=== PATIENT | female | born 1975 | race African-American/Black ===

== ENCOUNTER 2025-04-16 20:50 | Emergency (ER) | payer OTHER ==
[2025-04-16 22:11] LABS: ALT (SGPT) 18 U/L (Less than 34); AST (SGOT) 21 U/L (11-34); Albumin 3.3 g/dL (3.1-4.5); Alkaline Phosphatase 115 U/L (40-110); Anion Gap 11 mmol/L (10-20); BUN (Urea Nitrogen) 9 mg/dL (9.8-20.1); Bilirubin, Total 0.3 mg/dL (0.3-1.2); Calc. Creatinine Clearance 0 mL/min (70-130); Calcium 8.5 mg/dL (7.8-10.44); Carbon Dioxide 23 mmol/L (22-29); Chloride 105 mmol/L (98-107); Globulin 3.5 g/dL (2.4-3.5); Potassium 4.1 mmol/L (3.5-5.1); Sodium 135 mmol/L (136-145)
[2025-04-16 22:12] LABS: Glucose 438 mg/dL (70-105)
[2025-04-16 22:23] LABS: #Basophils 0.03 10x3/uL (0.0-0.2); #Eosinophils 0.11 10x3/uL (0.0-0.5); #Monocytes 0.59 10x3/uL (0.0-1.1); #Neutrophils 3.46 10x3/uL (1.5-8.4); %Basophils 0.5 % (0.0-2.0); %Eosinophils 1.7 % (0.0-6.0); %Lymphocytes 34.9 % (18.0-47.0); %Monocytes 9.1 % (0.0-10.0); %Neutrophils 53.0 % (40.0-75.0); Hematocrit 40.7 % (34.9-44.5); Hemoglobin 12.8 g/dL (12.0-15.5); Mean Corpuscular Hemoglobin 25.4 pg (27.0-33.0); Mean Corpuscular Volume 80.9 fL (81.6-98.3); Platelet Count 294 10x3/uL (150-450); Red Blood Cell (RBC) Count 5.03 10x6/uL (3.90-5.03); White Blood Cell (WBC) Count 6.51 10x3/uL (3.5-10.5)
[2025-04-16 22:55] LABS: Glucose, Urine (Dipstick) >=1000 mg/dL (Negative); Leukocyte Negative (Negative); Protein, Urine (Dipstick) Negative (Neg-Trace); Specific Gravity, Urine 1.010 (1.005-1.030)
[2025-04-16 23:22] LABS: CAUTI Indications for Culture Dysuria,urgency,freq; WBC/HPF 0-3 HPF (0-3)
[2025-04-16 23:23] LABS: Bacteria/HPF 1+ HPF (None Seen)
[2025-04-16 23:24] LABS: Urine Culture Reflex No No
== END 2025-04-16 23:19 | disposition home or self-care (01) ==
LOC: CSHERS 20:50
DX: E11.65 Type 2 diabetes mellitus with hyperglycemia (principal); E86.0 Dehydration; I10 Essential (primary) hypertension
CPT/HCPCS: 36416; 80053; 81001; 82010; 85025; 96361; 96374; J1815